=== PATIENT | female | born 1990 | race Caucasian/White ===

== ENCOUNTER 2017-01-29 19:58 | Emergency (ER) | payer BC, OTHER ==
[~2017-01-29] VITALS: Ht 165.1 cm; Wt 70.0 kg
[2017-01-29 20:27] VITALS: BP 138/80; PULSE 112; RESP 16; TEMP 98.3; O2SAT 98
--- NOTE | 2017-01-29 21:21 | PD ---
HPI Chief Complaint: Psychiatric Symptoms Time Seen by Provider: 21:21 Travel History International Travel<30 days: No Contact w/Intl Traveler<30days: No Traveled to known affect area: No History of Present Illness HPI 26 YO F presents to the ED under BA for evaluation of PFSH Past Medical History ?: Not Past Surgical History Section: Yes (X2) Social History Alcohol Use: Yes (OCC) Tobacco Use: Yes (PPD) Substance Use: No Allergies-Medications (Allergen,Severity, Reaction): Coded Allergies: No Known Allergies (Unverified , 01/29/17) Reported Meds & Prescriptions Reported Meds & Active Scripts Active No Active Prescriptions or Reported Medications Data Data Last Documented VS Vital Signs Date Time Temp Pulse Resp B/P (MAP) Pulse Ox O2 Delivery O2 Flow Rate FiO2 01/29/17 20:27 98.3 112 16 138/80 (99) 98 Orders Orders Complete Blood Count With Diff (01/29/17 21:19) Comprehensive Metabolic Panel (01/29/17 21:19) Psych Screen (01/29/17 21:19) Drug Screen, Random Urine (01/29/17 21:19) Alcohol (Ethanol) (01/29/17 21:19) Tetanus/Diphtheria Tox Adult (Tetanus/Di (01/29/17 21:30) Ed Urine Pregnancytest Poc (01/29/17 21:19) MDM Scripts No Active Prescriptions or Reported Meds Mitzi James Jan 29, 2017 21:21
[2017-01-29] MEDS ORDERED: TETANUS/DIPHTHERIA TOXOID ADULT 0.5 ML VIAL IM ONE (21:30)
[2017-01-30 00:01] LABS: AUTOMATED NEUTROPHIL # 6.7 TH/MM3 (1.8-7.7); BASOPHIL # 0.2 TH/MM3 (0-0.2); BASOPHIL % 1.4 % (0.0-2.0); EOSINOPHIL # 0.2 TH/MM3 (0-0.4); EOSINOPHIL % 1.4 % (0.0-4.0); HEMATOCRIT 39.8 % (35.0-46.0); LYMPH % 45.7 % (9.0-44.0); LYMPHOCYTE # 6.6 TH/MM3 (1.0-4.8); MEAN CELL VOLUME 92.9 FL (80.0-100.0); MEAN CORPUSCULAR HEMOGLOBIN 31.1 PG (27.0-34.0); MEAN CORPUSCULAR HGB CONC 33.5 % (32.0-36.0); NEUT % 46.5 % (16.0-70.0); PLATELET COUNT 314 TH/MM3 (150-450); RED BLOOD COUNT 4.28 MIL/MM3 (4.00-5.30); RED CELL DISTRIBUTION WIDTH 13.5 % (11.6-17.2); WHITE BLOOD COUNT 14.4 TH/MM3 (4.0-11.0)
[2017-01-30 00:02] LABS: HEMO FLAGS AUTO DIFF
--- NOTE | 2017-01-30 00:12 | PD ---
HPI Chief Complaint: Psychiatric Symptoms Time Seen by Provider: 23:16 Travel History International Travel<30 days: No Contact w/Intl Traveler<30days: No Traveled to known affect area: No History of Present Illness HPI 26 year-old female presents to emergency department under Pagan act for psychiatric evaluation. Patient reports history of depression and anxiety and suicidal thoughts. She has superficial self-inflicted laceration to her anterior wrist. Reports occasional alcohol consumption. She does smoke tobacco cigarettes. No illicit drug use. No other symptoms to report. [facility] Past Medical History Anxiety: Yes Depression: Yes ?: Not Past Surgical History Section: Yes (X2) Social History Alcohol Use: Yes (OCC) Tobacco Use: Yes (PPD) Substance Use: No Allergies-Medications (Allergen,Severity, Reaction): Coded Allergies: No Known Allergies (Unverified , 01/29/17) Reported Meds & Prescriptions Reported Meds & Active Scripts Active No Active Prescriptions or Reported Medications Review of Systems Except as stated in HPI: all other systems reviewed are Neg Physical Exam Narrative GENERAL: Well Nourished female patient, tearful but in no acute distress SKIN: Focused skin assessment warm/dry. HEAD: Atraumatic. Normocephalic. EYES: Pupils equal and round. No scleral icterus. No injection or drainage. ENT: No nasal bleeding or discharge. Mucous membranes pink and moist. NECK: Trachea midline. No JVD. CARDIOVASCULAR: Regular rate and rhythm. No murmur appreciated. RESPIRATORY: No accessory muscle use. Clear to auscultation. Breath sounds equal bilaterally. GASTROINTESTINAL: Abdomen soft, non-tender, nondistended. Hepatic and splenic margins not palpable. MUSCULOSKELETAL: No obvious deformities. No clubbing. No cyanosis. No edema. NEUROLOGICAL: Awake and alert. No obvious cranial nerve deficits. Motor grossly within normal limits. Normal speech. Data Data Last Documented VS Vital Signs Date Time Temp Pulse Resp B/P (MAP) Pulse Ox O2 Delivery O2 Flow Rate FiO2 01/30/17 02:44 95 18 112/69 (83) 01/29/17 20:27 98.3 98 Orders Orders Complete Blood Count With Diff (01/29/17 21:19) Comprehensive Metabolic Panel (01/29/17 21:19) Psych Screen (01/29/17 21:19) Drug Screen, Random Urine (01/29/17 21:19) Alcohol (Ethanol) (01/29/17 21:19) Tetanus/Diphtheria Tox Adult (Tetanus/Di (01/29/17 21:30) Ed Urine Pregnancytest Poc (01/29/17 21:19) Diet Regular Basic (01/30/17 Breakfast) Labs Laboratory Tests Test 01/29/17 23:30 White Blood Count 14.4 TH/MM3 Red Blood Count 4.28 MIL/MM3 Hemoglobin 13.3 GM/DL Hematocrit 39.8 % Mean Corpuscular Volume 92.9 FL Mean Corpuscular Hemoglobin 31.1 PG Mean Corpuscular Hemoglobin Concent 33.5 % Red Cell Distribution Width 13.5 % Platelet Count 314 TH/MM3 Mean Platelet Volume 8.7 FL Neutrophils (%) (Auto) 46.5 % Lymphocytes (%) (Auto) 45.7 % Monocytes (%) (Auto) 5.0 % Eosinophils (%) (Auto) 1.4 % Basophils (%) (Auto) 1.4 % Neutrophils # (Auto) 6.7 TH/MM3 Lymphocytes # (Auto) 6.6 TH/MM3 Monocytes # (Auto) 0.7 TH/MM3 Eosinophils # (Auto) 0.2 TH/MM3 Basophils # (Auto) 0.2 TH/MM3 CBC Comment AUTO DIFF Differential Comment AUTO DIFF CONFIRMED Platelet Estimate NORMAL Platelet Morphology Comment NORMAL Blood Urea Nitrogen 7 MG/DL Creatinine 0.90 MG/DL Random Glucose 98 MG/DL Total Protein 7.7 GM/DL Albumin 3.8 GM/DL Calcium Level 8.1 MG/DL Alkaline Phosphatase 96 U/L Aspartate Amino Transf (AST/SGOT) 19 U/L Alanine Aminotransferase (ALT/SGPT) 24 U/L Total Bilirubin 0.2 MG/DL Sodium Level 142 MEQ/L Potassium Level 4.0 MEQ/L Chloride Level 110 MEQ/L Carbon Dioxide Level 25.1 MEQ/L Anion Gap 7 MEQ/L Estimat Glomerular Filtration Rate 75 ML/MIN Ethyl Alcohol Level 253 MG/DL MDM Medical Decision Making Medical Screen Exam Complete: Yes Emergency Medical Condition: Yes Medical Record Reviewed: Yes Differential Diagnosis Mood disorder versus personality disorder versus adjustment reaction disorder Narrative Course 26 year-old female presents to emergency department under Pagan act for psychiatric evaluation. Patient appears tearful but without distress. Superficial self-inflicted lacerations to the anterior wrist are not in need of repair. Laboratory Tests Test 01/29/17 23:30 White Blood Count 14.4 TH/MM3 Red Blood Count 4.28 MIL/MM3 Hemoglobin 13.3 GM/DL Hematocrit 39.8 % Mean Corpuscular Volume 92.9 FL Mean Corpuscular Hemoglobin 31.1 PG Mean Corpuscular Hemoglobin Concent 33.5 % Red Cell Distribution Width 13.5 % Platelet Count 314 TH/MM3 Mean Platelet Volume 8.7 FL Neutrophils (%) (Auto) 46.5 % Lymphocytes (%) (Auto) 45.7 % Monocytes (%) (Auto) 5.0 % Eosinophils (%) (Auto) 1.4 % Basophils (%) (Auto) 1.4 % Neutrophils # (Auto) 6.7 TH/MM3 Lymphocytes # (Auto) 6.6 TH/MM3 Monocytes # (Auto) 0.7 TH/MM3 Eosinophils # (Auto) 0.2 TH/MM3 Basophils # (Auto) 0.2 TH/MM3 CBC Comment AUTO DIFF Differential Comment AUTO DIFF CONFIRMED Platelet Estimate NORMAL Platelet Morphology Comment NORMAL Blood Urea Nitrogen 7 MG/DL Creatinine 0.90 MG/DL Random Glucose 98 MG/DL Total Protein 7.7 GM/DL Albumin 3.8 GM/DL Calcium Level 8.1 MG/DL Alkaline Phosphatase 96 U/L Aspartate Amino Transf (AST/SGOT) 19 U/L Alanine Aminotransferase (ALT/SGPT) 24 U/L Total Bilirubin 0.2 MG/DL Sodium Level 142 MEQ/L Potassium Level 4.0 MEQ/L Chloride Level 110 MEQ/L Carbon Dioxide Level 25.1 MEQ/L Anion Gap 7 MEQ/L Estimat Glomerular Filtration Rate 75 ML/MIN Ethyl Alcohol Level 253 MG/DL Patient is medically cleared to undergo psychiatric screening for further evaluation and disposition. Mental health screening discussed with the patient. Psychiatric screen ordered. Diagnosis Primary Impression: Adjustment disorder Qualified Codes: F43.20 - Adjustment disorder, unspecified Additional Impression: Alcohol intoxication Qualified Codes: F10.929 - Alcohol use, unspecified with intoxication, unspecified Scripts No Active Prescriptions or Reported Meds Condition: Lainey Blanco Jan 30, 2017 00:12
[2017-01-30 00:27] LABS: ALT (GPT) 24 U/L (10-53); ANION GAP 7 MEQ/L (5-15); AST (GOT) 19 U/L (15-37); BICARBONATE 25.1 MEQ/L (21.0-32.0); BLOOD UREA NITROGEN 7 MG/DL (7-18); CHLORIDE 110 MEQ/L (98-107); GLOMERULAR FILTRATION RATE 75 ML/MIN (>89); SODIUM (NA) 142 MEQ/L (136-145)
[2017-01-30 00:29] LABS: ALKALINE PHOSPHATASE 96 U/L (45-117); TOTAL BILIRUBIN ADULT 0.2 MG/DL (0.2-1.0)
[2017-01-30 00:38] LABS: ALCOHOL 253 MG/DL (0-5)
[2017-01-30 00:47] LABS: PLATELET ESTIMATE SMEAR NORMAL (NORMAL); PLATELET MORPHOLOGY NORMAL (NORMAL); SCAN/DIFF AUTO DIFF CONFIRMED
[2017-01-30 02:44] VITALS: BP 112/69; PULSE 95; RESP 18
[2017-01-30 06:51] VITALS: BP 102/59; PULSE 68; RESP 16; O2SAT 97
--- NOTE | 2017-01-30 08:33 | PD.PSY.CON ---
Provisional Diagnosis Admission Date Date of consultation 01/30/2017 [place] I. 1. Adjustment reaction with mixed disturbance of emotions and conduct 2. Alcohol intoxication, resolved [place] II. Deferred History of Present Illness Service Psychiatry Consult Requested By Emergency department Reason for Consult Pagan act Primary Care Physician No Primary Care Physician HPI Ms. 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 Alcohol level on presentation here was 253. Reviewing the electronic medical record, I note this is patient's first visit to [facility]. Patient seen and examined. Chart reviewed. Case discussed with nurse in the J- pod. There has been no evidence of any suicidality or homicidality while the patient has been under observation in the J-pod. On my examination this morning , the patient is chronically sober. She relates that in May of this year her daughter fell in a swimming pool and sustained some sort of injury such that she is "not normal no more." She reports that a few days ago her other daughter made a comment to her that "she knew her sister was not coming home, not getting better." This distressed the patient. She began drinking heavily, although she insists she is not typically a heavy drinker. She says that in the context of her intoxication she cut her wrists superficially "just to feel something" other than her distress at the situation. She denies that this action was suicidal in nature. She denies any suicidal or homicidal ideation, intent or plan now and contracts for safety. She says that she wants to live for her children. She does admit to feeling quite overwhelmed. Mood is somewhat depressed. Sleep alternates between too little and too much. She does endorse some feelings of fatigue. No hypomanic or manic symptoms. Patient reports that she sometimes sees "shapes in the dark" while sleeping, perhaps hypnopompic or hypnagogic hallucinations. She otherwise denies audiovisual hallucinations. No delusions elicited. The remainder of the psychiatric ROS is negative. The patient is requesting discharge from the psychiatric emergency room this morning. She declines voluntary psychiatric hospitalization. Past psychiatric history: The patient reports a history of PTSD, depression and anxiety. She follows with a therapist by the name of Nolberto Bazan [facility], although she has not seen him in about a month now. She is not currently under the care of a psychiatrist. She takes no psychotropic medications. She denies a history of psychiatric admissions. She denies a history of suicide attempts. She does endorse a history of nonsuicidal self-injurious behavior, namely cutting, in high school. Family history: The patient reports that her paternal grandmother had schizophrenia. She denies a family history of suicide. Chemical dependency history: The patient denies any abuse of drugs or alcohol. Social history: Patient has some college education. She works as a [employer]IE[employer]. She is single with 2 children. She lives with her parents. Her father keeps guns locked in a safe and she reports that she has no access to this safe. She has never had a suicide plan involving a gun. She is a Shinto. With the patient's permission, I have obtained collateral from her mother Diane at [phone]. Diane reports that patient has no history of suicide attempts but does have a history of NSSIB. She is concerned that patient is not dealing with her psychosocial stressors well but is not worried that the patient is a risk for suicide. She does worry that alcohol was involved in presentation here. She notes that there is a family history of alcoholism, although she has not known patient to be a problem drinker in the past. She would be comfortable having the patient return home today with outpatient psychiatric and chem dep follow-up. I have counseled Diane to secure the home of all potential means of self-harm including guns, knives and medications. I have counseled Diane to have the patient brought back to the emergency room at any sign of psychiatric decompensation and educated her regarding the Pagan act, ex parte, and [place] act. Review of Systems Except as stated in HPI: all other systems reviewed are Neg Past Family Social History Coded Allergies: No Known Allergies (Unverified , 01/29/17) Past Medical History Patient denies any medical issues No Active Prescriptions or Reported Meds Patient takes no medications Patient's Strengths (min. 2) Supportive mother. Verbally fluent. Physical Exam Physical exam completed by ED provider. On my examination today, the patient appears to be in no acute physical distress. No signs of intoxication or withdrawal noted. Superficial scratches on bilateral wrists noted. Labs and vitals reviewed: Vital Signs Vital Signs Date Time Temp Pulse Resp B/P (MAP) Pulse Ox O2 Delivery O2 Flow Rate FiO2 01/30/17 06:51 68 16 102/59 (73) 97 01/29/17 20:27 98.3 Lab Results Test 01/29/17 23:30 White Blood Count 14.4 TH/MM3 Red Blood Count 4.28 MIL/MM3 Hemoglobin 13.3 GM/DL Hematocrit 39.8 % Mean Corpuscular Volume 92.9 FL Mean Corpuscular Hemoglobin 31.1 PG Mean Corpuscular Hemoglobin Concent 33.5 % Red Cell Distribution Width 13.5 % Platelet Count 314 TH/MM3 Mean Platelet Volume 8.7 FL Neutrophils (%) (Auto) 46.5 % Lymphocytes (%) (Auto) 45.7 % Monocytes (%) (Auto) 5.0 % Eosinophils (%) (Auto) 1.4 % Basophils (%) (Auto) 1.4 % Neutrophils # (Auto) 6.7 TH/MM3 Lymphocytes # (Auto) 6.6 TH/MM3 Monocytes # (Auto) 0.7 TH/MM3 Eosinophils # (Auto) 0.2 TH/MM3 Basophils # (Auto) 0.2 TH/MM3 CBC Comment AUTO DIFF Differential Comment AUTO DIFF CONFIRMED Platelet Estimate NORMAL Platelet Morphology Comment NORMAL Blood Urea Nitrogen 7 MG/DL Creatinine 0.90 MG/DL Random Glucose 98 MG/DL Total Protein 7.7 GM/DL Albumin 3.8 GM/DL Calcium Level 8.1 MG/DL Alkaline Phosphatase 96 U/L Aspartate Amino Transf (AST/SGOT) 19 U/L Alanine Aminotransferase (ALT/SGPT) 24 U/L Total Bilirubin 0.2 MG/DL Sodium Level 142 MEQ/L Potassium Level 4.0 MEQ/L Chloride Level 110 MEQ/L Carbon Dioxide Level 25.1 MEQ/L Anion Gap 7 MEQ/L Estimat Glomerular Filtration Rate 75 ML/MIN Ethyl Alcohol Level 253 MG/DL Mental Status Examination Patient is in hospital attire. Patient is somewhat disheveled but maintaining basic hygiene. Patient is awake and alert and oriented person and hospital at least. No evidence of delirium. No motor abnormalities appreciated. Speech is within normal limits for rate, tone, volume. Language and fund of knowledge average. Focus and concentration intact. Memory grossly intact on clinical exam. Mood is somewhat dysphoric. Affect is blunted, occasionally tearful, especially when discussing her daughter. Thought process linear. No delusions elicited. Denies audiovisual hallucinations presently and does not appear internally stimulated. Denies suicidal or homicidal ideation, intent, or plan and contracts for safety. Insight and judgment seem fair to poor. Assessment & Plan Problem List: (1) Adjustment disorder ICD Codes: F43.20 - Adjustment disorder, unspecified Status: Acute (2) Alcohol intoxication ICD Codes: F10.929 - Alcohol use, unspecified with intoxication, unspecified Status: Acute Assessment & Plan 26-year-old female with psychiatric history as detailed above who presents under a Pagan act. On my examination today, the patient is sober. She denies any suicidal or homicidal ideation. She is hansa for safety. She wants to live for her daughters. She engaged in NSSIB because of psychosocial stressors and facilitated by EtOH. She does admit to some depressive symptoms but is agreeable to following up outpatient for these issues. She appears to be attending to her basic needs. Collateral from mother is reassuring against patient being a risk for suicide. Synthesizing this information and weighing the relevant factors, I accounting methods analyst that the patient does not presently meet the Pagan act criteria. I have lifted the Pagan act. The patient is requesting discharge from the ER this morning and declining voluntary psychiatric hospitalization. I have counseled the patient regarding warning signs for need to return to the psychiatric emergency room as part of a general safety plan. I have counseled the patient to abstain from substances of abuse including alcohol. I have recommended outpatient psychiatric and chem dep follow-up, and the nurse will provide the appropriate referrals. I have encouraged her to return to see her therapist. Patient is otherwise psychiatrically clear for discharge from the ED. Thank you very much for this consultation. Request HC Surrog/Guard Advoc?: No Problem Qualifiers (1) Adjustment disorder: Qualified Codes: F43.25 - Adjustment disorder with mixed disturbance of emotions and conduct (2) Alcohol intoxication: Qualified Codes: F10.929 - Alcohol use, unspecified with intoxication, unspecified Jabier Fabian MD Jan 30, 2017 08:33
--- NOTE | 2017-01-30 09:57 | PD ---
Data Data Last Documented VS Vital Signs Date Time Temp Pulse Resp B/P (MAP) Pulse Ox O2 Delivery O2 Flow Rate FiO2 01/30/17 06:51 68 16 102/59 (73) 97 01/29/17 20:27 98.3 Orders Orders Complete Blood Count With Diff (01/29/17 21:19) Comprehensive Metabolic Panel (01/29/17 21:19) Psych Screen (01/29/17 21:19) Drug Screen, Random Urine (01/29/17 21:19) Alcohol (Ethanol) (01/29/17 21:19) Tetanus/Diphtheria Tox Adult (Tetanus/Di (01/29/17 21:30) Ed Urine Pregnancytest Poc (01/29/17 21:19) Diet Regular Basic (01/30/17 Breakfast) Labs Laboratory Tests Test 01/29/17 23:30 White Blood Count 14.4 TH/MM3 Red Blood Count 4.28 MIL/MM3 Hemoglobin 13.3 GM/DL Hematocrit 39.8 % Mean Corpuscular Volume 92.9 FL Mean Corpuscular Hemoglobin 31.1 PG Mean Corpuscular Hemoglobin Concent 33.5 % Red Cell Distribution Width 13.5 % Platelet Count 314 TH/MM3 Mean Platelet Volume 8.7 FL Neutrophils (%) (Auto) 46.5 % Lymphocytes (%) (Auto) 45.7 % Monocytes (%) (Auto) 5.0 % Eosinophils (%) (Auto) 1.4 % Basophils (%) (Auto) 1.4 % Neutrophils # (Auto) 6.7 TH/MM3 Lymphocytes # (Auto) 6.6 TH/MM3 Monocytes # (Auto) 0.7 TH/MM3 Eosinophils # (Auto) 0.2 TH/MM3 Basophils # (Auto) 0.2 TH/MM3 CBC Comment AUTO DIFF Differential Comment AUTO DIFF CONFIRMED Platelet Estimate NORMAL Platelet Morphology Comment NORMAL Blood Urea Nitrogen 7 MG/DL Creatinine 0.90 MG/DL Random Glucose 98 MG/DL Total Protein 7.7 GM/DL Albumin 3.8 GM/DL Calcium Level 8.1 MG/DL Alkaline Phosphatase 96 U/L Aspartate Amino Transf (AST/SGOT) 19 U/L Alanine Aminotransferase (ALT/SGPT) 24 U/L Total Bilirubin 0.2 MG/DL Sodium Level 142 MEQ/L Potassium Level 4.0 MEQ/L Chloride Level 110 MEQ/L Carbon Dioxide Level 25.1 MEQ/L Anion Gap 7 MEQ/L Estimat Glomerular Filtration Rate 75 ML/MIN Ethyl Alcohol Level 253 MG/DL [facility] Supervised Visit with HERRERA: No Narrative Course I have been asked by psychiatry to disposition this patient. She came in intoxicated and made a superficial suicidal gesture cut to the wrist that did not require any repair. She's been in the emergency department now 14 hours and has sobered up. She's been evaluated by psychiatry and her Pagan act has been lifted. They have deemed her no longer a danger to herself and safe to go home. I reviewed her lab studies. She had minor nonspecific leukocytosis and normal metabolic profile and LFTs. Alcohol was 253. At this point she is stable for outpatient follow-up. As noted, psychiatry has deemed her safe to go home. She should follow up with primary care physician and psychiatry and avoid alcohol binging. Diagnosis Primary Impression: Adjustment disorder Qualified Codes: F43.25 - Adjustment disorder with mixed disturbance of emotions and conduct Additional Impression: Alcohol intoxication Qualified Codes: F10.929 - Alcohol use, unspecified with intoxication, unspecified Additional Instruction: The patient was advised to follow up with their physician and return if they worsen. Avoid alcohol binging Med/Other Pt SpecificInfo: Other Scripts No Active Prescriptions or Reported Meds Disposition: 01 DISCHARGE HOME Condition: Stable Zoran Gore MD Jan 30, 2017 09:57
== END 2017-01-30 11:15 | disposition home or self-care (01) ==
LOC: NEDAMB 19:58 → NEPJ 01-30 11:15
DX: F43.25 Adjustment disorder with mixed disturbance of emotions and conduct (principal); F10.929 Alcohol use, unspecified with intoxication, unspecified; Z72.0 Tobacco use; Z23 Encounter for immunization
CPT/HCPCS: 80053; 80307; 85025; 90714; 96372